=== PATIENT | male | born 1975 | race Caucasian/White ===

== ENCOUNTER 2018-11-11 06:16 | Emergency (ER) | payer OTHER, SELFPAY ==
[2018-11-11 06:19] VITALS: BP 136/87; PULSE 64; RESP 18; TEMP 36.8; O2SAT 98
--- NOTE | 2018-11-11 06:42 | DI.CT_ITS ---
SYMPTOM/DIAGNOSIS: FELL AT HOME, RT BACK AND RUQ PAIN CHEST/ABDOMEN AND PELVIC CT: The study was carried out with an intravenous infusion of 100 cc's of Omnipaque 350. CHEST: There is a small region of atelectasis involving the right lung base. The lungs are otherwise unremarkable. There is no evidence of a pneumothorax or pleural effusion The cardiovascular structures appear intact. Note is made of a nondisplaced fracture involving the posterior portion of the right tenth rib. No other acute bony abnormality is seen. There is no evidence of an aortic aneurysm. SUMMARY: Nondisplaced posterior right tenth rib fracture, there is a small region of atelectasis involving the right lung base. The examination is otherwise unremarkable. ABDOMEN AND PELVIS: The liver and gallbladder are intact. There are no stones or ductal dilatation. The pancreas is normal. The spleen is normal A small radiolucency in the lower pole of the right kidney most likely represents a cyst. There is no evidence of right or left hydronephrosis. The adrenals are intact. A considerable quantity of fecal material is scattered throughout the colon. There is no evidence of bowel obstruction. The appendix is normal. The bladder is intact. The reproductive organs as visualized are unremarkable. There is no evidence of free air or free fluid in the intraperitoneal space. There is no evidence of an abdominal aortic aneurysm. No acute bony abnormality is defined. SUMMARY: No acute abnormality is noted in the abdomen or pelvis.
--- NOTE | 2018-11-11 06:47 | ED.GENADUL_ITS ---
Discharge Plan Disposition Patient Disposition: HOME Condition: Stable Discharge Details Chief Complaint: Nk/Back Pain Clinical Impression: Fracture of rib, Fall Primary Care Provider: [place] [facility] ED Provider: Donna Bean Home Meds and New Rx's Prescriptions: New lidocaine [Lidoderm] 5 % adhesive patch,medicated 1 patch TP DAILY PRN (Reason: pain) Qty: 15 RF: 0 oxycodone 5 mg tablet 5 mg PO Q6H PRN (Reason: pain) Qty: 5 RF: 0 Continued diphenhydramine HCl [Benadryl] 25 MG capsule 25 mg PO Q6H PRN RF: 0 epinephrine [EpiPen 2-Ari] 0.3 MG/0.3 ML auto-injector 0.3 mg IM ONCE Qty: 1 RF: 6 flunisolide 25 ML spray,non-aerosol 2 spry NS BID Qty: 1 RF: 12 ibuprofen 800 mg Tablet 800 mg PO BID PRNRF: 0 Discharge Instructions Instructions: Rib Fracture (ED) Additional Instructions: Apply ice to the affected area several times daily for 20 minutes at a time. Use the Lidoderm patches as directed. Take the oxycodone as needed and directed for pain not relieved with Motrin or Tylenol. Limit excessive exertion and activity for the next several weeks. Follow-up with your primary care doctor in 3 days for reevaluation. Return immediately to the emergency department with any worsening or new concerning symptoms such as fever, difficulty breathing, abdominal pain or vomiting. Discharge Data Discharge Physician: Donna Bean Medical Decision Making <Orlin Woodson MD - Last Filed: 11/11/18 07:44> 43-year-old male presents with history of slip and fall at home 2 days ago landing flat on his back on the right-hand side. Did not suffer a loss of consciousness. Since that time he said right posterior thoracic and right upper quadrant abdominal pain. He has normal vital signs, normal oxygenation. Concern for injury to the rib cage or underlying visceral injury. IV access established, fluids initiated, patient given ketorolac for pain control. Baseline laboratories obtained & he is referred for CT images. Patient be signed out to Dr. Bean at change of shift pending review of imaging studies. Please see her note for final impression and disposition <Donna Bean DO - Last Filed: 11/11/18 09:17> Please see Dr. Woodson's note for initial presentation, exam and plan. 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 Denies head injury, LOC, vomiting, neck pain, urinary symptoms, or extremity injury. Pain worsened yesterday with back spasms. Upon arrival, vitals within normal limits. Dr. Woodson noted right abdominal tenderness to palpation and he was referred for CT chest, abdomen and pelvis. Patient was given Toradol. Labs reviewed and unremarkable. CT reviewed and notes a nondisplaced right posterior 10th rib fracture. No acute intra-abdominal injury. Patient feels better after Toradol. He has no right upper quadrant tenderness upon my examination. He has mild right lateral abdominal tenderness near inferior ribs. He has tenderness to palpation of the right inferior posterior mid and lateral ribs. Patient is hemodynamically stable. He feels good to go home. Will place Lidoderm patch. Patient would rather treat without narcotics but is concerned about pain overnight. Will send home with a prescription for oxycodone and Lidoderm patch. Will give incentive spirometer. Patient instructed on the importance of rest, ice, limiting excessive activity and exertion. Instructed to follow-up with primary care doctor for reevaluation and to return here if worse. HPI <Orlin Woodson MD - Last Filed: 11/11/18 07:44> General Mode of arrival: ambulatory . Date/Time Provider Initiated Documentation: 11/11/18 06:34 . Limitations to Documentation: no limitations . Information obtained by: patient . History of Present Illness 43 year old M presents to the emergency department with the chief complaint of Right back, chest, right upper quadrant pain after fall 2 days ago, described as moderate, Quality is described as constant, and is localized to the back, abdomen and right. Patient reports no radiation. Patient started experiencing this day(s) and it has been constant. Rest improves symptom(s), Movement worsens symptoms . Patient notes no other symptoms.. Patient did receive the following treatments prior to arrival, NSAID Related Data Home Medications Medication Instructions Recorded Confirmed diphenhydramine HCl [Benadryl] 25 mg PO Q6H PRN tab-cap 10/10/16 11/11/18 epinephrine [EpiPen 2-Ari] 0.3 mg IM ONCE #1 kit 10/16/17 11/11/18 flunisolide 2 spry NS BID #1 spray 11/19/17 11/11/18 ibuprofen 800 mg PO BID PRN 11/11/18 11/11/18 lidocaine [Lidoderm] 1 patch TP DAILY PRN #15 each 11/11/18 oxycodone 5 mg PO Q6H PRN #5 tab 11/11/18 Previous Rx's Medication Instructions Recorded epinephrine [EpiPen 2-Ari] 0.3 mg IM ONCE #1 kit 10/16/17 flunisolide 2 spry NS BID #1 spray 11/19/17 lidocaine [Lidoderm] 1 patch TP DAILY PRN #15 each 11/11/18 oxycodone 5 mg PO Q6H PRN #5 tab 11/11/18 Allergies Allergy/AdvReac Type Severity Reaction Status Date / Time bee pollen Allergy Severe ANAPHLAXIS Unverified 11/11/18 06:23 ALLERGIES SEASONAL AdvReac Unknown Uncoded 11/11/18 06:23 General Stated Complaint: Nk/Back Pain LIZ: 4 Review of Systems <Orlin Woodson MD - Last Filed: 11/11/18 07:44> Review of Systems 6 systems reviewed and otherwise negative PFSH <Orlin Woodson MD - Last Filed: 11/11/18 07:44> Surgical History AC SHOULDER REPAIR (~06/2000) Myringotomy w/ PE (pressure equalizing) tubes Tooth extraction Family History Mother No problems noted. Father No problems noted. Sister No problems noted. Brother No problems noted. Grandfather No problems noted. Grandfather CHF (congestive heart failure) Grandmother No problems noted. Grandmother No problems noted. Daughter No problems noted. Social History Smoking/Tobacco Use Status: Never Alcohol Intake: current Alcohol Intake frequency: holidays/special occasions only Drug use: Occasionally Substance use type: marijuana Do you feel safe at home: Yes Do you feel safe in your relationship?: Yes Exam <Orlin Woodson MD - Last Filed: 11/11/18 07:44> Narrative Exam Narrative: GEN: awake, alert, oriented 3. Pleasant, well groomed, interactive. HEAD: Normocephalic, atraumatic ENT: Mucous membranes moist, oropharynx unremarkable, External ear exam unremarkable EYES: PERRL, EOMI NECK: Full ROM, no STEFAN, no menigismus CHEST/RESP: Right posterior chest wall tenderness, clear to auscultation bilateral, no wheeze/rhonchi/rales CARDIOVASCULAR: RRR, no murmur, rub rafiq. 2+ Rad pulse bilateral ABDOMEN: Soft, tender in the right upper quadrant, no mass. +Bowel sounds EXT: Full ROM, no edema, no rash Neuro: Grossly normal neurologic exam, conversant, interactive. Psych: Speech fluent, thoughts congruent, affect normal Course <Orlin Woodson MD - Last Filed: 11/11/18 07:44> Vital Signs Temperature 36.8 C 11/11/18 06:19 Pulse 64 11/11/18 06:19 Respiratory Rate 18 11/11/18 06:19 Blood Pressure 136/87 11/11/18 06:19 Pulse Oximetry 98 11/11/18 06:19 Temperature 36.8 C 11/11/18 06:19 Temperature Source Skin 11/11/18 06:19 Pulse 64 11/11/18 06:19 Respiratory Rate 18 11/11/18 06:19 Respiratory Effort Non-Labored 11/11/18 06:25 Blood Pressure 136/87 11/11/18 06:19 Blood Pressure Position Sitting 11/11/18 06:19 Pulse Oximetry 98 11/11/18 06:19 Oxygen Delivery Method Room Air 11/11/18 06:19 Oxygen Flow Rate 0 11/11/18 06:19 Pain Level 4 11/11/18 06:19 Comment 11/11/18 06:19 Sign Out <Orlin Woodson MD - Last Filed: 11/11/18 07:44> Sign Out Data: Sign Out Comment: Followup CT result Last updated by Orlin Woodson MD at 11/11/18 07:47
[2018-11-11] MEDS: Ketorolac 30 MG/ML VIAL IVP (07:05)
[2018-11-11] MEDS: Normal Saline 250 ML 500 ML IV (07:05)
[2018-11-11 07:10] LABS: Abs Immature Grans 0.02 k/cumm (0.0-0.09); Absolute Basophil Count 0.01 k/cumm (0.0-0.2); Absolute Eosinophil Count 0.12 k/cumm (0.0-0.7); Absolute Lymphocyte Count 1.23 k/cumm (1.2-3.4); Absolute Monocyte Count 0.52 k/cumm (0.11-0.7); Absolute Neutrophil Count 4.42 k/cumm (1.2-6.7); Basophils % 0.2; Eosinophils % 1.9; HCT 45.9 % (40.0-50.0); HGB 16.3 g/dL (13.5-17.5); Immature Grans % 0.3; Lymphocytes % 19.5; Mean Corp. HGB Concentration 35.5 g/dL (32.0-36.0); Mean Corpuscular Hemoglobin 30.4 pg (27.0-33.0); Mean Corpuscular Volume 85.6 fL (80-95); Mean Platelet Volume 12.2 fL (8.0-11.0); Monocytes % 8.2; Neutrophils % 69.9; Platelet Count 202 x1000/uL (130-400); RBC 5.36 m/cumm (4.50-6.00); RBC Distribution Width 12.4 % (11.8-14.1); White Blood Cell Count 6.32 k/cumm (4.4-10.8)
[2018-11-11 07:28] LABS: ALT 38 U/L (12-78); AST 23 U/L (15-37); Albumin 4.2 g/dL (3.4-5.0); Alkaline Phosphatase 78 U/L (46-116); Anion Gap 8.8 mmol/L (3-11); BUN 16 mg/dL (7-18); Bilirubin, Total 1.7 mg/dL (0.2-1.0); CO2 29.2 mmol/L (21.0-32.0); CREATININE 0.79 mg/dL (0.70-1.30); Calcium 9.4 mg/dL (8.5-10.1); Chloride 102 mmol/L (98-107); Glucose 94 mg/dL (70-100); Potassium 3.9 mmol/L (3.5-5.1); Sodium 140 mmol/L (136-145); Total Protein 7.8 g/dL (6.4-8.2)
[2018-11-11] MEDS: Omnipaque 350 MG/ML 100 ML BTL IJ (07:39)
[2018-11-11] MEDS: Normal Saline Flush 10 ML SYR IVP (07:56)
[2018-11-11 08:02] VITALS: BP 139/88; PULSE 62; RESP 16; TEMP 36.6; O2SAT 98
[2018-11-11] MEDS: Lidocaine 5% Patch 1 PATCH (09:16)
[2018-11-11 09:20] VITALS: BP 139/88; PULSE 62; RESP 16; TEMP 36.6; O2SAT 98
== END 2018-11-11 09:20 | disposition home or self-care (01) ==
PROVIDERS: Emergency Medicine; Emergency Provider Physician Assistant; PCP Emergency Medicine
DX: S22.31XA Fracture of one rib, right side, initial encounter for closed fracture (principal); W01.0XXA Fall on same level from slipping, tripping and stumbling without subsequent striking against object, initial encounter
CPT/HCPCS: 36415; 74177; 80053; 96374; 99285; 71260; 85025; 99284; J1885; J3490

== ENCOUNTER 2019-11-20 09:03 | Outpatient (CLI) | payer OTHER, SELFPAY ==
[2019-11-21 23:57] LABS: COVID-19 RT-PCR Result NEGATIVE (Negative)
== END 2019-11-20 09:23 ==
PROVIDERS: PCP Emergency Medicine; Visit Provider Emergency Medicine
DX: Z11.59 Encounter for screening for other viral diseases (principal)
CPT/HCPCS: U0003

== ENCOUNTER 2020-01-04 00:36 | Outpatient (CLI) | payer OTHER, SELFPAY ==
--- NOTE | 2020-01-04 08:20 | DI.RAD_ITS ---
EXAM: XR CERVICAL SPINE COMP 4-5V CLINICAL HISTORY: Left cervical radiculopathy, M54.12. TECHNIQUE: 2D digital imaging was performed. COMPARISON: No exams were available for comparison FINDINGS: The odontoid is intact. The lateral masses are well aligned. There is straightening of the normal c ervical lordosis. This may be due to muscle spasm or patient positioning. There is disc space narro wing seen at C6-C7. Endplate osteophytes are seen at C5-6 and C6-C7. No significant neural foramina l stenosis is seen. No acute fractures or subluxations are present. The prevertebral soft tissues a re unremarkable. There is a mild left convex curvature of the cervical spine which may be due to pat ient positioning. IMPRESSION: 1. Mild cervical spondylosis. 2. Mild left convex curvature and mild straightening of the cervical spine. This may be due to muscl e spasm or patient positioning. 3. If there is continued clinical concern, an MRI may be obtained for further evaluation. DATA REPOSITORY: RADIATION DOSE DELIVERED:
== END 2020-01-04 00:56 ==
PROVIDERS: PCP Emergency Medicine; Visit Provider Emergency Medicine
DX: M54.12 Radiculopathy, cervical region (principal); M47.812 Spondylosis without myelopathy or radiculopathy, cervical region
CPT/HCPCS: 72050

== ENCOUNTER 2022-08-14 01:18 | Outpatient (CLI) | payer OTHER, SELFPAY ==
--- NOTE | 2022-08-14 07:45 | DI.RAD_ITS ---
Exam(s) XR KNEE LT 3V AP,LAT,YEHUDA EXAM: XR KNEE LT 3V AP,LAT,YEHUDA CLINICAL HISTORY: Skiing accident,LT KNEE INJURY,S89.92XA. TECHNIQUE: 2D digital imaging was performed of the left knee. Three images were obtained. AP, late ral and PA tunnel views were obtained. COMPARISON: No exams were available for comparison FINDINGS: BONES: No acute fracture is present. No bony destructive lesion is seen. There is a prominent enthes ophyte at the superior patella. JOINTS: The knee is normally aligned. No joint effusion is seen. SOFT TISSUE: Normal. IMPRESSION: No acute fracture or dislocation. DATA REPOSITORY: RADIATION DOSE DELIVERED:
== END 2022-08-14 01:38 ==
PROVIDERS: PCP Nurse Practitioner Family; Visit Provider Nurse Practitioner Family
DX: S89.92XA Unspecified injury of left lower leg, initial encounter (principal); X58.XXXA Exposure to other specified factors, initial encounter
CPT/HCPCS: 73562

== ENCOUNTER 2022-10-31 01:04 | Outpatient (CLI) | payer OTHER, SELFPAY ==
--- NOTE | 2022-10-31 06:30 | DI.MRI_ITS ---
Exam(s) MR LOWER JOINT LT WO EXAM: MR LOWER JOINT LT WO CLINICAL HISTORY: ? MENISCAL TEAR,lt knee injury,s89.92xa. TECHNIQUE: Multiplanar multisequence MRI was performed. COMPARISON: MR MRI R LOWER JOINT WO CONT from 11/19/2017 CR XR KNEE LT 3V AP,LAT,YEHUDA from 08/14/2022 FINDINGS: BONES: There is no fracture or contusion pattern. JOINTS: No joint effusion is present. Articular cartilage: Patellofemoral joint: Articular cartilage is unremarkable. Medial femoral tibial joint: Mild cartilage irregularity. Small focal defect anterior mid medial fe moral condyle. Lateral femoral tibial joint: Articular cartilage is unremarkable. TENDONS: Extensor mechanism: Prominent enthesophyte at upper patella. No arm abnormal signal in the quadricep s tendon. Medial retinaculum: Unremarkable. Lateral retinaculum: Unremarkable. Popliteus: Unremarkable. MUSCLES: Unremarkable. MENISCI: Horizontal tear of the posterior horn and body extending to the inferior articular surface. On few small meniscal cysts are seen posteriorly at the root, adjacent to the posterior cruciate lig ament. Anterior horn appears intact. The lateral meniscus is unremarkable. SOFT TISSUES: Unremarkable. LIGAMENTS: Anterior Cruciate: Unremarkable. Posterior Cruciate: Unremarkable. Medial Collateral:Minimal adjacent fluid. No focal tear visible. Lateral Collateral: Unremarkable. OTHER: IMPRESSION: Inferior surfacing tear the posterior horn and body of the medial meniscus. Small adjacent meniscal cysts near the root. DATA REPOSITORY:
== END 2022-10-31 01:24 ==
PROVIDERS: PCP Nurse Practitioner Family; Visit Provider Student in an Organized Health Care Education/Training Program
DX: X58.XXXA Exposure to other specified factors, initial encounter; S83.242A Other tear of medial meniscus, current injury, left knee, initial encounter; M23.022 Cystic meniscus, posterior horn of medial meniscus, left knee
CPT/HCPCS: 73721

== ENCOUNTER 2022-11-22 07:54 | Day surgery (SDC) | payer OTHER, SELFPAY ==
[2022-11-22] VITALS (10 sets, daily range): BP systolic 92–124; BP diastolic 46–86; PULSE 48–63; RESP 16–25; TEMP 36.2–36.7; O2SAT 97–99; BMI 22.6
--- NOTE | 2022-11-22 07:06 | PDOC.DSDIS_ITS ---
Date of service: 11/22/22 Time of Service: 12:00 Discharge Plan Disposition Patient Disposition: Home Condition: Stable Discharge Details Attending Provider: Trevor Paiz Primary Care Provider: Preeti Hernández Home Meds and New Rx's Prescriptions: New aspirin 81 mg tablet,delayed release (DR/EC) 81 mg PO DAILY 14 Days Qty: 14 0RF naproxen 250 mg tablet 250 - 500 mg PO BID PRNQty: 40 0RF Rx Instructions: take with a meal ondansetron 4 mg tablet,disintegrating 4 mg PO Q6H PRN (Reason: nausea or vomiting) Qty: 5 0RF oxycodone-acetaminophen [Percocet] 5-325 mg tablet 1 - 2 tab PO Q4H MDD 30 mg PRN (Reason: moderate to severe pain) Qty: 12 0RF Continued diphenhydramine HCl [Benadryl] 25 MG capsule 25 mg PO Q6H PRN betamethasone dipropionate 0.05 % cream 1 applic topical BID PRN (Reason: skin irritation) Qty: 45 1RF epinephrine [EpiPen 2-Ari] 0.3 mg/0.3 mL auto-injector 0.3 mg IM ONCE Qty: 2 6RF Discontinued ibuprofen 800 mg Tablet 800 mg PO BID PRN Discharge Instructions Additional Instructions: Surgery: Left knee arthroscopy with partial medial meniscectomy Activity: Weightbearing as tolerated. Advance range of motion as comfort allows. No knee brace or crutches needed. Gradually begin low-impact activity including spin/ bike in 2-3 weeks. Recommend avoiding high-impact activities like sports, pivoting, and squatting for 6-8 weeks. A physical therapy pre scription will be sent electronically to start in 2 to 3 weeks. Prescriptions: Aspirin 81 mg take 1 daily to prevent a blood clot for 14 days Naproxen 250 mg take 1-2 every 12 hours with a meal as needed for moderate pain Oxycodone-Acetaminophen 5-325 mg take 1-2 every 4-6 hours as needed for severe pain (contains Tylenol) You may use [id number] Tylenol (acetaminophen) separately as needed for mild pain. These pain medications may be taken all at once or in different combinations as needed. Ondansetron (Zofran) 4 mg take 1 orally dissolving tablet every 6 hours as needed for nausea or vomiting Also, recommend Colace (docusate) as a stool softener as surgery and pain medicine cause constipation. You may try [id number] diphenhydramine (Benadryl) 25-50 mg nightly as a sleep aid Dressings: Leave dressing in place for 3 days. May then remove and leave open to air or cover incisions with Band-Aids. Leave the sticky Steri-Strips in place until they fall off or remove them after you shower. May shower after 5 days. Follow-up: 10-[address] Paiz You may take off the leg compression stockings this evening at home. You may also leave them on a few days longer if you have a history of leg swelling or edema. Let us know right away if you develop any redness, drainage, fevers, chest pain, or trouble breathing. Do not drink alcohol or drive for at least 24 hours after anesthesia. Please call the office during business hours with any questions or concerns. Discharge Orders Discharge Orders: Discharge Order (Routine); Ordered 11/22/22 Ordered By: Trevor Paiz DS: Diagnosis Discharge Diagnosis (1) Acute medial meniscus tear of left knee: Status: Acute
--- NOTE | 2022-11-22 07:09 | ROE_ITS ---
Date of service: 11/22/22 Time of Service: 10:00 Operative Note Operative Note DATE OF PROCEDURE: 11/22/22 PRE-OP DIAGNOSIS: Left knee 1. Medial meniscus tear POST-OP DIAGNOSIS: same Left knee 1. Medial meniscus tear 2. Synovitis 3. Medial femoral condyle chondromalacia PROCEDURE: Left knee 1. Partial medial meniscectomy, CPT #43433 SURGEON: Trevor Paiz DELIVERY ARCHITECT: None None ANESTHESIA TYPE: Local By Surgeon and General LMA/ETT Refer to Anesthesia Record ESTIMATED BLOOD LOSS: 5 PATHOLOGY: none sent TOURNIQUET TIME: 0 COMPLICATIONS: None Patient was transported to: PACU Patient's condition: stable Indications: Please see complete medical record for details. Findings: Exam under anesthesia: Full range of motion, no instability, stable varus valgus [place] and anterior drawer. Mild varus alignment. Arthroscopic findings: Complex posterior horn medial meniscus tear with extension near the root and into the meniscal body. Moderate medial compartment narrowing with medial femoral condyle chondromalacia with cartilage fraying and thinning diffusely posterior with a separate smaller high-grade area distally about 5 x 5 mm. Intact ACL. Intact lateral compartment and lateral meniscus. Abundant intercondylar fat pad and moderate engaging lateral patellofemoral synovitis Procedure Description: In the operating room, general anesthesia was induced. The patient was positioned supine on the operating room table. All bony prominences were well- padded. Preoperative antibiotics were administered. The knee was prepped and draped in the usual sterile fashion. The correct patient, procedure, and side of the procedure were all verified prior to incision. Exam under anesthesia was performed. 10 cc of 0.25% bupivacaine containing epinephrine was infiltrated about the planned anteromedial and anterolateral knee arthroscopy portals. The portals were established and a complete diagnostic arthroscopy was performed with relevant findings detailed above. The mechanical shaver was used to abundant fat pad from the anterior and intercondylar areas as well as laterally in the patellofemoral compartment engaging synovitis. The medial meniscus tear was probed and examined. The tear was somewhat complex with the horizontal superior and inferior leaflets but also some more radial extension centrally between the posterior horn and the body as well as oblique extension into the body and oblique and inferior extension partially adjacent to the root. The medial compartment was moderately narrowed with associated moderate femoral condyle chondromalacia, which correlated with the weightbearing x-rays and MRI imaging and made access to the posterior horn challenging. Using a combination of hand instruments including meniscal biters and a power shaver and working through the anteromedial and anterolateral portals the meniscus was debrided of all torn tissue to a stable margin. Care was taken to preserve as much meniscus tissue was possible. The meniscal remnant was probed and found to have a stable margin, stable root, and no other tears The cartilage was very lightly debrided of loose free edges fibrillations and small flaps at the posterior aspect of the medial femoral condyle and around the more distal focal lesion preserving as much cartilage as possible. Under direct arthroscopic visualization an 18-gauge needle was passed into the knee from superolateral into the suprapatellar pouch. The knee was copiously irrigated with arthroscopic fluid until there was a clear effluent before being drained of all fluid. The anteromedial and anterolateral portals were closed in 3-0 Monocryl in a buried interrupted fashion. 20 cc of 0.25% bupivacaine with epinephrine containing 4 mg of morphine was infiltrated into the knee through t he previously placed needle. Mastisol, Steri-Strips, and 4 x 4 gauze were applied over the incisions followed by sterile soft roll. The knee was then wrapped gently with an GARDENIA comressive bandage. The patient awoke from anesthesia without complication and was transferred to the recovery room in a stable condition.
--- NOTE | 2022-11-22 08:34 | W.ANESPRE ---
General Info Date of Service Date Performed: 11/22/22 Height: 6 ft Weight: 75.5 kg Body Mass Index (BMI): 22.6 Surgical Procedure: Operation Date: 11/22/22 09:25 Proposed Procedure Side Surgeon p Knee Arthroscopy w probable Medial Meniscectomy Left Trevor Paiz MD Meds Allergies and Home Medications Allergies Allergy/AdvReac Type Severity Reaction Status Date / Time bee pollen Allergy Severe Anaphylaxis Unverified 11/22/22 08:18 ALLERGIES SEASONAL AdvReac Unknown Uncoded 11/22/22 08:18 Home Medication Medication Instructions Recorded diphenhydramine HCl 25 mg capsule 25 mg PO Q6H PRN 10/10/16 (Benadryl) betamethasone dipropionate 0.05 % 1 applic topical BID PRN skin 12/29/20 topical cream irritation #45 grams epinephrine 0.3 mg/0.3 mL 0.3 mg (0.3 mL) IM ONCE #2 ea 10/25/22 injection, auto-injector (EpiPen 2-Ari) aspirin 81 mg tablet,delayed 81 mg PO DAILY Prevent blood clot 11/22/22 release 14 days #14 tabs naproxen 250 mg tablet 250 - 500 mg PO BID PRN #40 tabs 11/22/22 ondansetron 4 mg disintegrating 4 mg PO Q6H PRN nausea or vomiting 11/22/22 tablet #5 tabs oxycodone-acetaminophen 5 mg-325 1 - 2 tab PO Q4H PRN moderate to 11/22/22 mg tablet (Percocet) severe pain #12 tabs Current Visit Medications: Current Medications Generic Name Dose Route Start Last Admin Trade Name Freq PRN Reason Stop Dose Admin Ringer's Solution 1,000 mls @ 30 mls/hr 11/22/22 06:00 IV 12/21/22 23:59 INFUSION ADAM Cefazolin Sodium/Dextrose 2 gm in 50 mls @ 100 mls/hr 11/22/22 06:00 Ancef Duplex IVPB 12/21/22 23:59 PREOP ADAM IV Miscellaneous Supplies 1 each 11/22/22 06:00 Iv Access IV 12/21/22 23:59 DIRECTED ADAM Oxycodone HCl 0 mg 11/22/22 07:25 Oxycodone 5 Mg Tab PO 12/22/22 07:24 Q3H PRN PRN Pain Sodium Chloride 0 ml 11/22/22 06:00 Normal Saline Flush 10 Ml Syr IV 12/21/22 23:59 PRN PRN Sodium Chloride 0 ml 11/22/22 06:00 Normal Saline 10 Ml Vial IJ 12/21/22 23:59 DIRECTED PRN Sterile Water 0 ml 11/22/22 06:00 Water,Injection,Sterile 10 Ml Vial IJ 12/21/22 23:59 DIRECTED PRN PFSH Active Problems Active Problems: Problem Status Onset Code Acute medial meniscus tear of left knee ~07/2022 S83.242A Strain of right gastrocnemius muscle 08/12/22 S86.111A COVID-19 U07.1 Skin lesion L98.9 Right leg pain M79.604 Left cervical radiculopathy M54.12 Medical History Medical History Comments:: An 2 days ago; has 2x week Surgical History Surgical History AC SHOULDER REPAIR (~06/2000) LEFT SHOULDER Myringotomy w/ PE (pressure equalizing) tubes A CHILD Tooth extraction WISDOM TEETH EXTRACTED Tobacco Smoking/Tobacco Use Status: Never Alcohol Alcohol Intake: current Alcohol intake frequency: holidays/special occasions only Substance Use Substance use: Occasionally Substance use type: marijuana Vital Signs and Lab Results Vital Signs Most Recent Vital Signs in EMR: Most Recent Vital Signs Temp Pulse Resp BP Pulse Ox 36.7 C 54 L 16 120/81 99 11/22/22 08:21 11/22/22 08:21 11/22/22 08:21 11/22/22 08:21 11/22/22 08:21 Lab Results Blood Type / Crossmatch: No Data to Display Complete Blood Count: No Data to Display Complete Metabolic Panel: No Data to Display Liver Function Panel: No Data to Display Coagulation Panel: No Data to Display Cardiac Panel: No Data to Display Arterial Blood Gas: No Data to Display Venous Blood Gas: No Data to Display Pancreas Panel: No Data to Display Thyroid Panel: No Data to Display Infectious Disease: No Data to Display Blood Cultures: No Data to Display Toxicology Panel: No Data to Display Anesthesia Assessment and Plan Anesthesia History Personal History: No History of Anesthesia Complications Family History: No Family History of Anesthesia Complications Exercise Tolerance Exercise Tolerance: Metabolic Equivalents>4 Pertinent Negatives Pertinent Negatives: No Symptoms of GERD, No Major Cardiovascular Symptoms or Complaints, No Major Pulmonary Symptoms or Complaints and No History of CVA/TIA Cardiac & Pulmonary Exam Cardiac Exam: Normal S1/S2 Heart Sounds Pulmonary Exam: Clear Bilateral Breath Sounds Implantable Cardiac Device Does patient have a Pacemaker or an ICD?: No Airway Exam Known Difficult Airway: No Mallampati Class: 2 Mouth Opening: Normal (> 3cm) Thyromental Distance: Greater than 3 cm Neck Range of Motion: Full ROM Neck Circumference: Normal Teeth Condition: Normal Dentition ASA Classification ASA Score: ASA 2 Emergency Case?: No NPO Status NPO Status: NPO Clears >2 hours, Solids >8 hours Anesthesia Plan Resuscitation Status: Full Code Anesthesia Technique: General Anesthesia Airway Planned: LMA Monitors Used: Standard Monitors
[2022-11-22] MEDS: Lactated Ringers 1,000 ML 30 ML IV (08:55)
[2022-11-22] MEDS: ceFAZolin 2 GM/50 ML BAG IVPB (09:37)
[2022-11-22] MEDS: MORPHine 4 MG/ML SYR (10:09)
[2022-11-22] MEDS: ePHEDrine 25 MG/5 ML Syringe IVP (11:04)
--- NOTE | 2022-11-22 12:53 | W.ANESPOSTOP ---
Postoperative Evaluation Date, Time and Location Date Performed: 11/22/22 Time Performed: 11:40 Patient Location: PACU Vital Signs Most Recent Imported Vital Signs: Most Recent Vital Signs Temp Pulse Resp BP Pulse Ox 36.2 C L 48 L 18 116/86 97 11/22/22 12:00 11/22/22 12:00 11/22/22 12:00 11/22/22 12:00 11/22/22 12:00 Pain Score Most Recent Pain Score: Most Recent Pain Score Pain Level 2 11/22/22 12:00 Assessment Mental Status: Awake (Alert & Oriented to Patient Baseline) Airway and Respiratory Function: Patent airway with normal (patient baseline) respiratory exam Cardiovascular Function: Hemodynamically Stable Hydration Status: Adequately Hydrated Nausea & Vomiting: No Nausea or Vomiting Pain: Pain is tolerable per patient Peripheral Nerve Block: Patient did not receive a nerve block
== END 2022-11-22 14:05 | disposition home or self-care (01) ==
PROVIDERS: PCP Nurse Practitioner Family; Visit Provider Student in an Organized Health Care Education/Training Program
PROC: (CPT 29881; principal; 2022-11-22 09:15)
DX: S83.242A Other tear of medial meniscus, current injury, left knee, initial encounter (principal); M65.862 Other synovitis and tenosynovitis, left lower leg; M94.262 Chondromalacia, left knee; X58.XXXA Exposure to other specified factors, initial encounter; Y93.23 Activity, snow (alpine) (downhill) skiing, snowboarding, sledding, tobogganing and snow tubing
CPT/HCPCS: 29881; C1781; J0690; J1100; J1885; J2270; J2405; J2704

== ENCOUNTER 2022-12-27 03:18 | Outpatient (CLI) | payer OTHER, SELFPAY ==
[2022-12-27 12:24] LABS: HCT 42.8 % (40.0-50.0); HGB 15.3 g/dL (13.5-17.5); MCH 30.4 pg (27.0-33.0); MCHC 35.7 % (32.0-36.0); MCV 85 fL (80-95); MPV 12.3 fL (8.0-11.0); Platelet Count 238 10^3/uL (130-400); RBC 5.04 10^6/uL (4.36-5.78); RDW 11.9 % (11.8-14.1); RDW-SD 36.5 fL; WBC 5.22 10^3/uL (4.4-10.8)
[2022-12-27 12:46] LABS: Anion Gap 7.5 mmol/L (3-11); BUN 14 mg/dL (7-18); CO2 30.5 mmol/L (21.0-32.0); Calcium 9.4 mg/dL (8.5-10.1); Calculated LDL 151 mg/dL (<100); Chloride 103 mmol/L (98-107); Cholesterol 245 mg/dL (<200); Glucose 94 mg/dL (74-106); HDL Cholesterol 83 mg/dL (40-60); Sodium 141 mmol/L (136-145); Triglyceride 55 mg/dL (<150)
== END 2022-12-27 03:19 | disposition home or self-care (01) ==
LOC: LOS 03:18
PROVIDERS: PCP Nurse Practitioner Family; Visit Provider Nurse Practitioner Family
DX: Z00.00 Encounter for general adult medical examination without abnormal findings (principal); Z13.220 Encounter for screening for lipoid disorders; Z13.228 Encounter for screening for other metabolic disorders; Z13.0 Encounter for screening for diseases of the blood and blood-forming organs and certain disorders involving the immune mechanism
CPT/HCPCS: 36415; 80048; 80061; 85027

== ENCOUNTER 2023-04-10 09:19 | Outpatient (CLI) | payer OTHER, SELFPAY ==
--- NOTE | 2023-04-10 08:30 | DI.RAD_ITS ---
Exam(s) XR SHOULDER LT COMPLETE 2+V EXAM: XR SHOULDER LT COMPLETE 2+V CLINICAL HISTORY: LEFT SHOULDER PAIN. TECHNIQUE: 2D digital imaging was performed of the left shoulder. Two images were obtained. Grashe y and axillary views were obtained. COMPARISON: No exams were available for comparison FINDINGS: BONES: No acute fracture is present. No bony destructive lesion is seen. Small benign-appearing cyst is seen at the inferior glenoid. JOINTS: No dislocation present. The glenohumeral joint is well maintained. Mild degenerative changes are seen at the acromioclavicular joint. SOFT TISSUE: Visualized lungs are clear. IMPRESSION: Mild degenerative changes of the AC joint. DATA REPOSITORY: RADIATION DOSE DELIVERED:
== END 2023-04-10 09:20 | disposition home or self-care (01) ==
LOC: DIORS 09:19
PROVIDERS: PCP Nurse Practitioner Family; Visit Provider Student in an Organized Health Care Education/Training Program
DX: M25.512 Pain in left shoulder (principal)
CPT/HCPCS: 73030

== ENCOUNTER → 2023-04-30 00:38 | Outpatient (CLI) | payer OTHER, SELFPAY ==
--- NOTE | 2023-04-30 06:30 | DI.MRI_ITS ---
Exam(s) MR LOWER EXTREMITY RT WO EXAM: MR LOWER EXTREMITY RT WO CLINICAL HISTORY: PAIN,INJURY,strain rt gastrocnemius muscle, s86.111a TECHNIQUE: Multiplanar multisequence MRI was performed. COMPARISON: No exams were available for comparison FINDINGS: MARROW:No evidence of fracture or bone contusion. No evidence of tibial stress reaction (arroyo splint s). There are no significant osseous lesions. MUSCLES: There is mild signal abnormality in the mid-lower aspect of the medial gastrocnemius muscle. There is also an intermuscular fluid collection between the medial gastrocnemius and the subjacent soleus muscle which measures 12 cm cephalocaudal length by 0.8 cm maximum thickness by 3 cm maximum w idth, consistent with intermuscular fascial plane hematoma. EXTRAMUSCULAR SOFT TISSUES: As above. OTHER: Small para-articular ganglia on at the level of the proximal tibial fibular joint. Thanks no abnormal intraosseous signal in the fibular head and neck nor in the adjacent tibia metaphysis and e piphysis-tibial plateau. No obvious internal derangement evident in the ipsilateral knee, realizing the limitations of this non knee specific field view study. No Diaz cyst in the popliteal fossa. IMPRESSION: 1. There is an intermuscular fluid collection between the medial gastrocnemius and soleus muscles abhijit suring 12 cm cephalocaudal length by 0.8 cm maximum thickness by 3 cm maximal with and there is mild increased signal in the overlying medial gastrocnemius muscle. Findings are consistent with probable sequelae of muscle injury and intermuscular hematoma. 2. No significant osseous findings. No evidence of tibial stress reaction/arroyo splints DATA REPOSITORY:
== END ==
PROVIDERS: PCP Nurse Practitioner Family; Visit Provider Student in an Organized Health Care Education/Training Program
DX: S86.111A Strain of other muscle(s) and tendon(s) of posterior muscle group at lower leg level, right leg, initial encounter (principal); X58.XXXA Exposure to other specified factors, initial encounter; Y99.0 Civilian activity done for income or pay
CPT/HCPCS: 73718

== ENCOUNTER 2023-07-11 07:38 | Day surgery (SDC) | payer OTHER, SELFPAY ==
--- NOTE | 2023-07-10 21:34 | W.PM.DSUDISC ---
Date of service: 07/11/23 Time of Service: 10:31 Discharge Plan Disposition Patient Disposition: Home Condition: Good Discharge Details Reason For Visit: screening colonoscopy Attending Provider: Alfredo Washington Primary Care Provider: Preeti Hernández Home Meds and New Rx's Prescriptions: Continued diphenhydramine HCl [Benadryl] 25 MG capsule 25 mg PO Q6H PRN betamethasone dipropionate 0.05 % cream 1 applic topical BID PRN (Reason: skin irritation) Qty: 45 1RF epinephrine [EpiPen 2-Ari] 0.3 mg/0.3 mL auto-injector 0.3 mg IM ONCE Qty: 2 6RF Discontinued bisacodyl [Dulcolax (bisacodyl)] 5 mg tablet,delayed release (DR/EC) 5 mg PO ONCE Qty: 4 0RF Rx Instructions: Colonoscopy Bowel Prep- Per Instructions polyethylene glycol 3350 17 gram/dose powder 238 g PO ONCE Qty: 238 0RF Rx Instructions: Colonoscopy Bowel Prep- Per Instructions Discharge Instructions Instructions: Colorectal Polyps (GEN) Additional Instructions: Been, we were able to finish your colonoscopy today without any issues. Your prep was great. We could see everything just fine. I did find 2 polyps within your rectum. Both of these are quite small. I removed these both completely polyps come in a number of different varieties, which are hard to differentiate by the naked eye. The 2 polyps that I took out will be sent to the pathologist, and they will send me a report in about a week or 2. Once I have the results of the polyp analysis, I will be in touch with recommendations for your next colonoscopy. If you need anything at all, or have any questions, please do not hesitate to call. 1. If tolerated, consume a soft, low fiber diet for 1-2 days. 2[address] Do not drive, drink alcohol, operate machinery, make critical decisions, or do activities that require coordination or balance for 24 hours. 3. Because air was put into your colon during the procedure, expelling air from your rectum (passing gas or farting) is normal. 4. You may not have a bowel movement for 1-3 days because of the colonoscopy prep. This is normal. 5. Go directly to the emergency room if you notice any of the following: Develop chills (warm to touch), or if you have a thermometer and your temperature is above 101 Difficulty breathing or difficultly swallowing Persistent vomiting Severe abdominal pain, other than gas cramps Severe chest pain Black, tarry stools Any bleeding ? exceeding one tablespoon 6. Call your physician if the site where your intravenous was started becomes red, swollen, painful, and warm to touch. 7. Your physician has reviewed your pre-procedure medications. Please continue to take those medications as previously ordered. You will be given specific information/education regarding any changes to your medications before leaving. Activity:: Activity as Tolerated Diet:: As Tolerated Discharge Orders Discharge Orders: Discharge Order (Routine); Ordered 07/10/23 Ordered By: Alfredo Washington DS: Diagnosis Discharge Diagnosis (1) Screen for colon cancer: Status: Acute Asessment and Plan: Follow-up on polypectomy results
--- NOTE | 2023-07-10 21:36 | COLE_ITS ---
Date of service: 07/11/23 Time of Service: 10:34 Colonoscopy Report Date of procedure: 07/11/23 Pre-op diagnosis general: screening colonoscopy Post-op diagnosis procedure note: other (Rectal polyps) Procedure: Colonoscopy with polypectomy Surgeon: Alfredo Washington Anesthesia Type: General:No Airway Estimated blood loss (mL): 5 Pathology: other (Rectal polyps x 2) Complications: None Disposition: same day Indications: Willian is a 47 year old man who needs his first screening colonoscopy Prep: Miralax/Dulcolax Procedure Start Time: 09:49 Procedure End Time: 10:11 Retraction Time: 14 Findings: 0.25 cm rectal polyps x 2 Procedure Description: After the induction of monitored anesthetic care, and with the patient in left lateral decubitus position, I began by performing an external anorectal exam.? Perineum and skin were normal, as was the anal verge.? There was no evidence of external hemorrhoids.? Next, I performed a digital rectal exam.? I did not appreciate any abnormal findings.? Next, I advanced a colonoscope into the rectal vault.? I performed retroflexion.? This was normal.? Using insufflation, I then advanced the colonoscope beyond the rectal folds and into the sigmoid colon before advancing towards the cecum.? The quality of the prep was outstanding.? The scope was noted to be in the cecum by identification of the ileocecal valve and appendiceal orifice.? I then began withdrawing the colonoscope using repeated irrigation as necessary for full evaluation of the colonic mucosa. ?Once the scope was withdrawn to the level of the rectum, great care was taken to examine portions of the rectal folds. In the upper portion of the rectal vault, perhaps 18 cm from the anus were 0.25 cm rectal polyps x 2. Both were flat. I removed both of these with cold forceps without any issue. There was minimal bleeding.? Finally, the scope was withdrawn and the patient was brought to the same-day surgery recovery unit as the anesthetic wore off. ?The findings and instructions were shared with the patient prior to discharge. Charlotte Bowel Prep Charlotte Bowel Prep Right Colon: 3 Left Colon: 3 Transverse Colon: 3 Total Score: 9
[2023-07-11 08:36] VITALS: BP 132/82; PULSE 58; RESP 16; TEMP 36.6; O2SAT 99
[2023-07-11] MEDS: Lactated Ringers 1,000 ML 80 ML IV (08:41)
--- NOTE | 2023-07-11 09:40 | W.ANESPRE ---
General Info Date of Service Date Performed: 07/11/23 Height: 6 ft Weight: 74.6 kg Body Mass Index (BMI): 22.3 Surgical Procedure: Operation Date: 07/11/23 09:50 Proposed Procedure Side Surgeon jerod Washington MD Meds Allergies and Home Medications Allergies Allergy/AdvReac Type Severity Reaction Status Date / Time bee pollen Allergy Severe Anaphylaxis Unverified 07/11/23 08:42 ALLERGIES SEASONAL AdvReac Unknown Uncoded 07/11/23 08:42 Home Medication Medication Instructions Recorded diphenhydramine HCl 25 mg capsule 25 mg PO Q6H PRN 10/10/16 (Benadryl) betamethasone dipropionate 0.05 % 1 applic topical BID PRN skin 12/29/20 topical cream irritation #45 grams epinephrine 0.3 mg/0.3 mL 0.3 mg (0.3 mL) IM ONCE #2 ea 10/25/22 injection, auto-injector (EpiPen 2-Ari) Current Visit Medications: Current Medications Generic Name Dose Route Start Last Admin Trade Name Freq PRN Reason Stop Dose Admin Hyoscyamine Sulfate 0.125 mg 07/10/23 21:37 Hyoscyamine 0.125 Mg Sl/Oral/Chew SL 08/09/23 21:36 DIRECTED PRN Ringer's Solution 1,000 mls @ 80 mls/hr 07/11/23 06:00 07/11/23 08:41 IV 07/11/23 23:59 80 mls/hr INFUSION ADAM Administration IV Miscellaneous Supplies 1 each 07/11/23 06:00 Iv Access IV 07/11/23 23:59 DIRECTED ADAM Ondansetron HCl 4 mg 07/10/23 21:37 Ondansetron 4 Mg/2 Ml Vial IVP 08/09/23 21:36 Q4H PRN PRN Nausea / Vomiting Sodium Chloride 0 ml 07/11/23 06:00 Normal Saline Flush 10 Ml Syr IV 07/11/23 23:59 PRN PRN Sodium Chloride 0 ml 07/11/23 06:00 Normal Saline 10 Ml Vial IJ 07/11/23 23:59 DIRECTED PRN Sterile Water 0 ml 07/11/23 06:00 Water,Injection,Sterile 10 Ml Vial IJ 07/11/23 23:59 DIRECTED PRN PFSH Active Problems Active Problems: Problem Status Onset Code Screen for colon cancer Z12.11 Otitis media of right ear with rupture of tympanic membrane H66.91, H72.91 Right ear pain H92.01 Impingement of left shoulder M25.812 Iliotibial band syndrome, left leg M76.32 Tendinitis of left quadriceps tendon M76.892 Acute medial meniscus tear of left knee ~07/2022 S83.242A Strain of right gastrocnemius muscle 08/12/22 S86.111A COVID-19 U07.1 Skin lesion L98.9 Right leg pain M79.604 Left cervical radiculopathy M54.12 Medical History Medical History Comments:: An 2 days ago; has 2x week Surgical History Surgical History AC SHOULDER REPAIR (~06/2000) LEFT SHOULDER Myringotomy w/ PE (pressure equalizing) tubes A CHILD Tooth extraction WISDOM TEETH EXTRACTED Tobacco Smoking/Tobacco Use Status: Former Tobacco Use Smokeless tobacco user: snuff Second hand exposure: No Alcohol Alcohol Intake: current Alcohol intake frequency: a few times a week Alcohol type: beer Substance Use Substance use: Occasionally Substance use type: marijuana Vital Signs and Lab Results Vital Signs Most Recent Vital Signs in EMR: Most Recent Vital Signs Temp Pulse Resp BP Pulse Ox 36.6 C 58 L 16 132/82 99 07/11/23 08:36 07/11/23 08:36 07/11/23 08:36 07/11/23 08:36 07/11/23 08:36 Lab Results Blood Type / Crossmatch: No Data to Display Complete Blood Count: No Data to Display Complete Metabolic Panel: No Data to Display Liver Function Panel: No Data to Display Coagulation Panel: No Data to Display Cardiac Panel: No Data to Display Arterial Blood Gas: No Data to Display Venous Blood Gas: No Data to Display Pancreas Panel: No Data to Display Thyroid Panel: No Data to Display Infectious Disease: No Data to Display Blood Cultures: No Data to Display Toxicology Panel: No Data to Display Anesthesia Assessment and Plan Anesthesia History Personal History: No History of Anesthesia Complications Family History: No Family History of Anesthesia Complications Exercise Tolerance Exercise Tolerance: Metabolic Equivalents>4 Pertinent Negatives Pertinent Negatives: No Symptoms of GERD Cardiac & Pulmonary Exam Cardiac Exam: Normal S1/S2 Heart Sounds Pulmonary Exam: Clear Bilateral Breath Sounds Implantable Cardiac Device Does patient have a Pacemaker or an ICD?: No Airway Exam Known Difficult Airway: No Mallampati Class: 2 Mouth Opening: Normal (> 3cm) Thyromental Distance: Greater than 3 cm Neck Range of Motion: Full ROM Neck Circumference: Normal Teeth Condition: Normal Dentition ASA Classification ASA Score: ASA 2 Emergency Case?: No NPO Status NPO Status: NPO Clears >2 hours, Solids >8 hours Anesthesia Plan Resuscitation Status: Full Code Anesthesia Technique: General Anesthesia Airway Planned: Natural Airway Monitors Used: Standard Monitors
[2023-07-11 09:42] VITALS: BMI 22.3
--- NOTE | 2023-07-11 10:05 | BOWEL_PTH ---
PATIENT: Daniel Ramirez LOC: [facility] U#:[id number] AGE/SX: 47/M ROOM: RE07/11/[address]: Alfredo Washington MD : 1975 BED: DIS: 07/11/2023 SPEC #: [id number] RECD: 07/11/23 12:13 STATUS: RENAY REQ #: [id number] VIOLETTE: 07/11/23 10:[address]: Alfredo Washington DEPT: Surgical Specimen RECD BY: Lisa Pwoer ENTERED: 07/11/23 12:14 SP TYPE: Bowel OTHR DR: Preeti Hernández, MONA Tissues: 1 - BIOPSY BOWEL Procedures: GROSS AND MICRO LEVEL 4 Comments: [id number]
[2023-07-11 10:19] VITALS: BP 119/81; PULSE 59; RESP 16; TEMP 36.5; O2SAT 96
--- NOTE | 2023-07-11 10:28 | W.ANESPOSTOP ---
Postoperative Evaluation Date, Time and Location Date Performed: 07/11/23 Time Performed: 10:29 Patient Location: Day Surgery Unit Vital Signs Most Recent Imported Vital Signs: Most Recent Vital Signs Temp Pulse Resp BP Pulse Ox 36.5 C 59 L 16 119/81 96 07/11/23 10:19 07/11/23 10:19 07/11/23 10:19 07/11/23 10:19 07/11/23 10:19 Pain Score Most Recent Pain Score: Most Recent Pain Score Pain Level 0 07/11/23 10:19 Assessment Mental Status: Awake (Alert & Oriented to Patient Baseline) Airway and Respiratory Function: Patent airway with normal (patient baseline) respiratory exam Cardiovascular Function: Hemodynamically Stable Hydration Status: Adequately Hydrated Nausea & Vomiting: No Nausea or Vomiting Pain: Pt. Denies Any Pain Peripheral Nerve Block: Patient did not receive a nerve block
[2023-07-11 10:44] VITALS: BP 121/85; PULSE 51; RESP 16; TEMP 36.6; O2SAT 98
== END 2023-07-11 11:25 | disposition home or self-care (01) ==
LOC: SUR 07:39
PROVIDERS: PCP Nurse Practitioner Family; Visit Provider Surgery
PROC: 0DJD8ZZ Inspection of Lower Intestinal Tract, Via Natural or Artificial Opening Endoscopic (ICD-10-PCS; CPT 45378; principal; 2023-07-11 09:45)
DX: Z12.11 Encounter for screening for malignant neoplasm of colon (principal); K63.5 Polyp of colon
CPT/HCPCS: 45380; 88305; J2704

== ENCOUNTER → 2023-10-31 13:28 | Outpatient (CLI) | payer OTHER, SELFPAY ==
--- NOTE | 2023-10-31 09:30 | DI.RAD_ITS ---
Exam(s) XR FOOT RT COMPLETE EXAM: XR FOOT RT COMPLETE CLINICAL HISTORY: pain along 5th toe,m79.676. TECHNIQUE: 2D digital imaging was performed. Three views. COMPARISON: No exams were available for comparison FINDINGS: BONES: No acute fracture is present. No bony destructive lesion is seen.Small plantar spur. JOINTS: No dislocation present. SOFT TISSUE: Swelling at first and fifth metatarsal. IMPRESSION: No bony abnormality. Soft tissue swelling. DATA REPOSITORY: RADIATION DOSE DELIVERED:
== END ==
PROVIDERS: PCP Nurse Practitioner Family; Visit Provider Nurse Practitioner Family
DX: M79.671 Pain in right foot (principal)
CPT/HCPCS: 73630

== ENCOUNTER → 2023-11-06 04:01 | Outpatient (CLI) | payer OTHER, SELFPAY ==
--- NOTE | 2023-11-06 09:15 | DI.MRI_ITS ---
Exam(s) MR LOWER JOINT RT WO EXAM: MR LOWER JOINT RT WO CLINICAL HISTORY: QUAD TENDINOPATHY,tendinitis rt quadriceps tendon, m76.891. TECHNIQUE: Multiplanar multisequence MRI was performed. COMPARISON: MR MRI R LOWER JOINT WO CONT from 11/19/2017 FINDINGS: BONES: There is no fracture or contusion pattern. JOINTS: Small focus of hyperintense signal seen overlying the medial femoral condyle. This may repre sent area of chondromalacia. The articular cartilage is otherwise well maintained. There is a small amount of fluid in the joint space. TENDONS: Extensor mechanism: There is hyperintense signal seen in the medial aspect of the extensor tendon at its insertion site onto the patella. Findings are suspicious for partial tear. Medial retinaculum: Unremarkable. Lateral retinaculum: Unremarkable. Popliteus: Unremarkable. MUSCLES: Unremarkable. MENISCI: The medial meniscus is unremarkable. The lateral meniscus is unremarkable. SOFT TISSUES: Unremarkable. LIGAMENTS: Anterior Cruciate: Unremarkable. Posterior Cruciate: Unremarkable. Medial Collateral:Unremarkable. Lateral Collateral: Unremarkable. OTHER: IMPRESSION: 1. Hyperintense signal seen in the medial aspect of the extensor tendon at its insertion site suspici ous for partial tear/tendinosis. 2. No evidence of a meniscal or ligament tear. DATA REPOSITORY:
== END ==
PROVIDERS: PCP Nurse Practitioner Family; Visit Provider Student in an Organized Health Care Education/Training Program
DX: M76.891 Other specified enthesopathies of right lower limb, excluding foot (principal)
CPT/HCPCS: 73721

== ENCOUNTER 2024-05-03 11:55 | Emergency (ER) | payer OTHER, SELFPAY ==
[2024-05-03 11:56] VITALS: BP 155/93; PULSE 68; RESP 20; TEMP 36.8; O2SAT 97
[2024-05-03 12:07] VITALS: BP 155/93; PULSE 68; RESP 20; TEMP 36.8; O2SAT 97
[2024-05-03] MEDS: Ibuprofen 600 MG TAB PO (12:44)
[2024-05-03] MEDS: Cephalexin 500 MG CAP PO (12:45)
[2024-05-03] MEDS: Acetaminophen 500 MG TAB 1000 MG PO (12:45)
[2024-05-03] MEDS: Lidocaine 2% Pres-Free W/EPI 1/200,000 20 ML VIAL (12:45)
--- NOTE | 2024-05-03 13:12 | ED.GENADUL_ITS ---
Discharge Plan Disposition Patient Disposition: Home Discharge Details Clinical Impression: Splinter of left upper extremity Primary Care Provider: Preeti Hernández ED Provider: Miles Urban Home Meds and New Rx's Prescriptions: New cephalexin 500 mg capsule 500 mg PO QID 5 Days Qty: 20 0RF No Action epinephrine [EpiPen 2-Ari] 0.3 mg/0.3 mL auto-injector 0.3 mg IM ONCE Qty: 2 6RF Discharge Instructions Additional Instructions: You are seen in the emergency department for your splinter. Unfortunately we could not remove this in the emergency department. You are receiving antibiotics which you should take as directed for the next 5 days. As we discussed please soak your arm twice a day and warm soapy water or water that is warm with peroxide. Once your wound closes you do not need to continue soaking your arm unless your arm begins showing signs of redness or swelling which could represent an abscess. If this occurs please return to the emergency department to have your wound reassessed. If you develop fevers or worsening signs of infection please also return to the emergency department. For your pain please take medications as follows: 1. Take acetaminophen (Tylenol), 1,000 mg (two 500 mg tabs) every 6 hours [2. Take ibuprofen (Advil), 400 mg every 6 hours.] Discharge Data Discharge Date/Time-TO BE ENTERED AT DEPARTURE: 05/03/24 13:14 HPI General Date/Time Provider Initiated Documentation: 05/03/24 12:08 . HPI Narrative: MDM This is an overall very well appearing normothermic and not tachycardic [id number] 48-year-old male with left forearm fiberglass superficial splinter that unfortunately could not be removed in the emergency department following 1 attempt at bedside following topical analgesia. Please see procedure note. Please note that 4 attempts were made at directing the linear foreign body through the subcutaneous incision that had made with an 11 blade scalpel following local analgesia. The foreign body could not be delivered through the small wound. I did not want to make a larger wound because I was concerned about placing the patient at higher risk for infections with a larger wound. On palpation and ultrasound at the end of the procedure the linear foreign body appeared smaller compared to the original ultrasound pictures. Patient and I discussed that he should take his prophylactic antibiotics and soak his left upper extremity in warm soapy water or water with iodine twice a day for the next 5 days while his wound is open. Patient is not a diabetic nor a tobacco user so my suspicion is low that he will go on to develop an abscess or cellulitis. We also discussed that even if his wound healed that he should begin soaking his arm again if he had swelling streaking signs of infection or develop fevers. If he had any of these signs I advised to ED return for reassessment. I advised it was also possible that his body could heal over his splinter and that it might not bother him again. He understood these to possibilities. I updated his tetanus which had not been updated since 2017. He is traveling later this week and will seek care in [place] if he has any concerns. I placed him on prophylactic cephalexin. No pain out of proportion to suggest necrotizing soft tissue infection. No signs of erythema at the moment to suggest cellulitis. No fluctuance to suggest abscess. Full range of motion in the left upper extremity so I am not concern for underlying bony abnormalities so I did not feel that the patient required plain films. Left hand warm well-perfused so I was not concerned for critical limb ischemia. No limitations in range of motion so not concern for septic arthritis. HPI This is a previously healthy [id number] 48-year-old male arrived to the emergency department via private vehicle in the setting of a fiberglass splinter that he sustained in his left forearm just prior to arrival. Patient was preparing for winter and placing plow stakes. He tucked 1 of this takes under his left arm and felt a fiberglass splinter into his forearm through his jacket. He was able to remove the splinter but after he removed it he felt some residual fiberglass material under his skin that he was not able to remove himself. He was in his usual state of health earlier today. 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 Exam General: Well-appearing in no acute distress speaking in complete sentences. Head: Normocephalic, atraumatic. Eye: Extraocular eye movements intact. No conjunctival injection. No scleral icterus. Ear, nose, mouth, throat: Grossly normal inspection. Normal voice, handling secretions normally. Neck: Trachea midline. Cardiovascular: Well-perfused distal extremities. Respiratory: Nonlabored respiration. Gastrointestinal: Nondistended abdomen. Musculoskeletal: On the dorsal and radial aspect of the mid left forearm there is a small approximately 1 cm mobile subcutaneous linear foreign body consistent with patient's history of retained fiberglass splinter. Skin: Normal for age and race, grossly normal temperature and turgor. No acute rash. Neurologic: Alert and appropriate, no apparent acute deficits. Psychiatric: Mood and manner are appropriate. Grooming and personal hygiene are appropriate. Related Data Home Medications ?Medication ?Instructions ?Recorded ?Confirmed epinephrine 0.3 mg/0.3 mL 0.3 mg (0.3 mL) IM ONCE #2 ea 10/30/23 05/03/24 injection, auto-injector (EpiPen 2-Ari) cephalexin 500 mg capsule 500 mg PO QID 5 days #20 caps 05/03/24 Previous Rx's ?Medication ?Instructions ?Recorded epinephrine 0.3 mg/0.3 mL 0.3 mg (0.3 mL) IM ONCE #2 ea 10/30/23 injection, auto-injector (EpiPen 2-Ari) cephalexin 500 mg capsule 500 mg PO QID 5 days #20 caps 05/03/24 Allergies Allergy/AdvReac Type Severity Reaction Status Date / Time bee pollen Allergy Severe Anaphylaxis Verified 05/03/24 12:01 ALLERGIES SEASONAL AdvReac Unknown Other (See Uncoded 05/03/24 12:01 Comment) General Stated Complaint: [employer] LIZ: 4 Course Vital Signs Vital signs: Vital Signs Temperature 36.8 C 05/03/24 11:56 Pulse 68 05/03/24 11:56 Respiratory Rate 20 05/03/24 11:56 Blood Pressure 155/93 H 05/03/24 11:56 Pulse Oximetry 97 05/03/24 11:56 Temperature 36.8 C 05/03/24 12:07 Pulse 68 05/03/24 12:07 Respiratory Rate 20 05/03/24 12:07 Respiratory Effort Normal 05/03/24 12:01 Blood Pressure 155/93 H 05/03/24 12:07 Blood Pressure Position Supine 05/03/24 12:07 Pulse Oximetry 97 05/03/24 12:07 Oxygen Delivery Method Room Air 05/03/24 12:07 Oxygen Flow Rate 0 05/03/24 12:07 Pain Level 2 05/03/24 12:07 Procedures Foreign Body Removal Time Out Performed: yes Site: left Description of foreign body: other (Fiberglass splinter) Sedation/Analgesia: none Technique: incision made to facilitate removal (Following verbal permission and cleaning with chlorhexidine wipe the subcutaneous foreign body was mobilized using tweezers. A small incision was made in the skin following topical lidocaine treatment with epinephrine. A white linear foreign body was visible. Unfortunately this could not be grasp) Complications: none (Unfortunately foreign body was not able to be removed.) Neurovascular: normal distal pulse and normal capillary fill Medical Decision Making Quality:SDOH Health Related Social Needs: No Data to Display PFSH All Active Problems (Updated 05/03/24 @ 13:13 by Miles Urban MD) Splinter of left upper extremity (Acute) Pain of fifth toe (Acute) Tendinitis of right quadriceps tendon (Acute) Hyperplastic colon polyp (Acute ~07/11/23) Screen for colon cancer (Acute) Otitis media of right ear with rupture of tympanic membrane (Acute) Right ear pain (Acute) Impingement of left shoulder (Acute) Iliotibial band syndrome, left leg (Acute) Tendinitis of left quadriceps tendon (Acute) Acute medial meniscus tear of left knee (Acute ~07/2022) s/p left knee arthroscopy with partial medial meniscectomy 11/22/22 Strain of right gastrocnemius muscle (Acute 08/12/22) COVID-19 (Acute) Onset-07/15/22 Vaccinated Skin lesion (Acute) On nose Right leg pain (Acute) Left cervical radiculopathy (Acute) Surgical History History of colonoscopy (~06/2023) path sent Myringotomy w/ PE (pressure equalizing) tubes A CHILD Tooth extraction WISDOM TEETH EXTRACTED AC SHOULDER REPAIR (~06/2000) LEFT SHOULDER Family History Grandfather CHF (congestive heart failure) Social History Smoking/Tobacco Use Status: Former Tobacco Use tobacco type: smokeless tobacco Quit Date: 10/22/98 Tobacco: How many years used: 9 Smokeless tobacco user: chewing tobacco and snuff Second Hand Exposure: No Smoking risk assessment performed?: Yes Alcohol Intake: current Alcohol Intake frequency: a few times a week Alcohol type: beer Drug use: Socially Substance use type: marijuana Household members: family Housing: house Number of Children: 2 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; [employer] Pets and animals: Yes Pets and animals: dog(s) Current gender identity: male What is your relationship status?: Panel score (0-1 are the most socially isolated patients): 1 What type of physical activity do you participate in: regular exercise Frequency: 5-6 times per week Seatbelt use: always Do you feel safe at home: Yes Do you feel safe in your relationship?: Yes POCUS Exam (ED) Limited Soft Tissue Exam DATE OF EXAM: 05/03/24 TIME OF EXAM: 12:14 PROVIDER THAT PERFORMED THE STUDY: Miles Urban IS THIS A REPEAT EXAM DURING THIS ENCOUNTER: No LOCATION OF EXAM: Upper extremity/left REASON FOR EXAM: History of foreign body Exam Complete DIFFERENTIAL DIAGNOSES: Echogenic linear approximately 1 cm subcutaneous foreign body with posterior sh adow approximately 0.25 cm deep in the subcutaneous tissue.
[2024-05-03 13:14] VITALS: BP 126/81; PULSE 67; RESP 14; O2SAT 96
== END 2024-05-03 13:14 | disposition home or self-care (01) ==
PROVIDERS: Emergency Provider Emergency Medicine; PCP Nurse Practitioner Family
DX: S51.842A Puncture wound with foreign body of left forearm, initial encounter (principal); W45.8XXA Other foreign body or object entering through skin, initial encounter; Y93.89 Activity, other specified; Y92.89 Other specified places as the place of occurrence of the external cause; Z23 Encounter for immunization; Z87.891 Personal history of nicotine dependence
CPT/HCPCS: 10120; 76882; 90471; 90715; 99284; 99283; J2004

== ENCOUNTER 2025-02-19 18:54 | Emergency (ER) | payer OTHER, SELFPAY ==
--- NOTE | 2025-02-19 18:56 | ED.GENADUL_ITS ---
Discharge Plan Disposition Patient Disposition: Home Condition: Good Discharge Details Clinical Impression: Allergic reaction to bee sting, Left arm swelling Primary Care Provider: Preeti Hernández ED Provider: Dandy Toth Meds and New Rx's Prescriptions: New prednisone 20 mg tablet 40 mg PO HS Qty: 8 0RF Continued epinephrine [EpiPen 2-Ari] 0.3 mg/0.3 mL auto-injector 0.3 mg IM ONCE Qty: 2 6RF Discharge Instructions Instructions: Insect Bites and Stings ED Additional Instructions: You were seen for a localized allergic reaction to bee sting with significant left arm swelling. We will start you on prednisone burst with first dose given tonight and next dose due tomorrow night. Would keep your arm elevated. Continue use of Zyrtec while on prednisone. Follow-up with primary care and consider referral for allergy desensitization. Return to ED for any worsening arm pain, redness, fever, other concerns. Referrals: Preeti Hernández, [facility] [facility]ENTICE [Primary Care Provider, Medicine] HPI General Mode of arrival: ambulatory . Date/Time Provider Initiated Documentation: 02/19/25 18:56 . Limitations to Documentation: no limitations . Information obtained by: patient and RN notes reviewed . HPI Narrative: Patient presents to ED with left upper extremity swelling and itching. Patient with history of allergic reaction to bee stings. He was stung 2 days ago in the tricep area. He did not require use of his epinephrine pen. He has been taking diphenhydramine regularly. Arm has become swollen from mid bicep area down to the hand. He does not report any type of pain. He has had no fever or chills. Denies any numbness or weakness distally. Has been trying to keep his arm elevated. Has had significant local reactions in the past but is never swollen up quite like this. Related Data Home Medications ?Medication ?Instructions ?Recorded ?Confirmed epinephrine 0.3 mg/0.3 mL 0.3 mg (0.3 mL) IM ONCE #2 e a 10/30/23 02/19/25 injection, auto-injector (EpiPen 2-Ari) prednisone 20 mg tablet 40 mg (2 x 20 mg) PO HS #8 t abs 02/19/25 Previous Rx's ?Medication ?Instructions ?Recorded epinephrine 0.3 mg/0.3 mL 0.3 mg (0.3 mL) IM ONCE #2 e a 10/30/23 injection, auto-injector (EpiPen 2-Ari) prednisone 20 mg tablet 40 mg (2 x 20 mg) PO HS #8 t abs 02/19/25 Allergies Allergy/AdvReac Type Severity Reaction Status Date / Time bee pollen Allergy Severe Anaphylaxis Verified 02/19/25 19:03 ALLERGIES SEASONAL AdvReac Unknown Other (See Uncoded 02/19/25 19:03 Comment) General LIZ: 4 Exam Narrative Exam Narrative: Const: WDWN male in NAD. VS per triage. HEENT: NC/AT. Normal facial exam. Neck: Supple. Trachea midline. Lungs: Normal respiratory effort. Cor: RRR. Good radial pulses. Neuro: A+O x 3. Normal speech, mentation, gait. Cranial nerves II - XII grossly intact. No gross motor or sensory deficit. Ext: No C/C. LUE with edema from mid upper arm down to hand. No tenderness anywhere. Normal ROM. Normal strength and sensation. Normal radial pulse. Warmth but no erythema. Few tiny clear vesicles in area of sting. Medical Decision Making Patient presenting to ED with left upper extremity swelling. He has pruritus but no pain. He was stung 2 days ago. There were few scattered tiny clear vesicles in the area of the sting. There was no erythema or tenderness. There is warmth. He has neurovascularly intact distally. This seems like a severe local reaction to the bee sting. Given lack of pain or fever this does not appear to be cellulitis. Very unlikely to be related to upper extremity DVT also given lack of pain and given proximity to bee sting along with the vesicles which are likely related to allergic reaction. Will start the patient on a prednisone burst with 60 mg given tonight. He may stop the diphenhydramine for now as it makes him very sleepy. Will have him use Zyrtec instead. Follow-up with primary care and may want to discuss referral to allergy for desensitization. Return precautions provided. [facility] All Active Problems (Updated 02/19/25 @ 19:23 by Dandy Toth MD) Left arm swelling (Acute) Allergic reaction to bee sting (Acute) Pain of fifth toe (Acute) Tendinitis of right quadriceps tendon (Acute) Hyperplastic colon polyp (Acute ~07/11/23) Screen for colon cancer (Acute) Otitis media of right ear with rupture of tympanic membrane (Acute) Right ear pain (Acute) Impingement of left shoulder (Acute) Iliotibial band syndrome, left leg (Acute) Tendinitis of left quadriceps tendon (Acute) Acute medial meniscus tear of left knee (Acute ~07/2022) s/p left knee arthroscopy with partial medial meniscectomy 11/22/22 Strain of right gastrocnemius muscle (Acute 08/12/22) COVID-19 (Acute) Onset-07/15/22 Vaccinated Skin lesion (Acute) On nose Right leg pain (Acute) Left cervical radiculopathy (Acute) Surgical History History of colonoscopy (~06/2023) path sent Myringotomy w/ PE (pressure equalizing) tubes A CHILD Tooth extraction WISDOM TEETH EXTRACTED AC SHOULDER REPAIR (~06/2000) LEFT SHOULDER Family History Grandfather CHF (congestive heart failure) Social History Smoking/Tobacco Use Status: Former Tobacco Use tobacco type: smokeless tobacco Quit Date: 10/22/98 Tobacco: How many years used: 9 Smokeless tobacco user: chewing tobacco and snuff Second Hand Exposure: No Smoking risk assessment performed?: Yes Alcohol Intake: current Alcohol Intake frequency: a few times a week Alcohol type: beer Drug use: Socially Substance use type: marijuana Household members: family Housing: house Number of Children: 2 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
[2025-02-19 18:58] VITALS: BP 138/58; PULSE 82; RESP 16; TEMP 36.9; O2SAT 96
[2025-02-19] MEDS: predniSONE 20 MG TAB 60 MG PO (19:32)
== END 2025-02-19 19:40 | disposition home or self-care (01) ==
PROVIDERS: Emergency Provider Emergency Medicine; PCP Nurse Practitioner Family
DX: T63.441A Toxic effect of venom of bees, accidental (unintentional), initial encounter (principal); R22.32 Localized swelling, mass and lump, left upper limb
CPT/HCPCS: 99283 ×2; J7512

== ENCOUNTER 2025-03-08 14:14 | Outpatient (CLI) | payer OTHER, SELFPAY ==
[2025-03-08 16:03] LABS: ALT 32 U/L (16-63); AST 33 U/L (15-37); Albumin 4.0 g/dL (3.4-5.0); Alkaline Phosphatase 79 U/L (46-116); Anion Gap 8.6 mmol/L (3-11); BUN 19 mg/dL (7-18); Bilirubin, Total 1.6 mg/dL (0.2-1.0); CO2 30.4 mmol/L (21.0-32.0); Calcium 9.1 mg/dL (8.5-10.1); Calculated LDL 115 mg/dL (<100); Chloride 102 mmol/L (98-107); Cholesterol 233 mg/dL (<200); Estimated GFR 105.35 (mL/min/1.73m2); Glucose 82 mg/dL (74-106); HDL Cholesterol 78 mg/dL (>or=40); Potassium 3.9 mmol/L (3.5-5.1); Sodium 141 mmol/L (136-145); Total Protein 7.1 g/dL (6.4-8.2); Triglyceride 204 mg/dL (<150)
== END 2025-03-08 14:15 | disposition home or self-care (01) ==
LOC: LOS 14:14
PROVIDERS: PCP Nurse Practitioner Family; Referring Provider Nurse Practitioner Family; Visit Provider Nurse Practitioner Family
DX: Z00.00 Encounter for general adult medical examination without abnormal findings (principal); T63.441A Toxic effect of venom of bees, accidental (unintentional), initial encounter
CPT/HCPCS: 36415; 80053; 80061